=== PATIENT | female | born 1955 | race Hispanic/Latino ===

== ENCOUNTER → 2022-01-05 | Outpatient (CLI) | payer MEDICARE | END | disposition home or self-care (01) | LOC: RAH 10:37 | PROVIDERS: ATTEND Physical Medicine & Rehabilitation | DX: M47.816 Spondylosis without myelopathy or radiculopathy, lumbar region (principal); M48.061 Spinal stenosis, lumbar region without neurogenic claudication; M53.3 Sacrococcygeal disorders, not elsewhere classified; Z88.8 Allergy status to other drugs, medicaments and biological substances | CPT/HCPCS: 72195 ==